=== PATIENT | male | born 1965 | race Two or more races ===

== ENCOUNTER 2024-01-02 06:13 | Day surgery (SDC) | payer OTHER ==
[2024-01-02] MEDS ORDERED: DIPHENHYDRAMINE HCL 50 MG/ML VIAL 1ML IV ONE (08:45)
[2024-01-02] MEDS ORDERED: fentaNYL CITRATE 50 MCG/ML AMPUL IV PUSH ONE (08:45)
[2024-01-02] MEDS ORDERED: MIDAZOLAM HCL 2 MG/2 ML VIAL IV ONE (08:45)
== END 2024-01-02 09:55 | disposition home or self-care (01) ==
LOC: AMB-ENDOS 06:13
PROVIDERS: ATTEND Orthopaedic Surgery Sports Medicine
DX: K63.5 Polyp of colon (principal); K62.1 Rectal polyp